=== PATIENT | male | born 1955 | race Caucasian/White ===

== ENCOUNTER → 2016-08-20 | Outpatient (CLI) | payer BC, OTHER | LOC: RAD 15:56 | PROVIDERS: ATTEND Specialist | DX: C90.00 Multiple myeloma not having achieved remission (principal) | CPT/HCPCS: 78816; A9552 ==

== ENCOUNTER 2018-04-27 08:08 | Outpatient (CLI) | payer OTHER ==
[~2018-04-27 08:08] MED LIST: ACETAMINOPHEN 325 MG TABLET PO PRN; DEXAMETHASONE SOD PHOSPHATE 10 MG in NORMAL SALINE 50 ML IV PRN; DEXTROSE 5%-WATER 250 ML IV PRN; DIPHENHYDRAMINE HCL 50 MG in NORMAL SALINE 50 ML IV PRN; GLY IV PRN; IGA OV50 IV PRN; IMMUN GLOB IV PRN; [UNRECOGNIZED DRUG - OTHER] IV PRN
[2018-04-27 08:49] VITALS: BP 123/56
== END 2018-04-27 13:14 | disposition home or self-care (01) ==
LOC: II 08:08 → 5TH 08:11 → II 13:14
PROVIDERS: ATTEND Internal Medicine
PROC: 30243S1 Transfusion of Nonautologous Globulin into Central Vein, Percutaneous Approach (ICD-10-PCS; principal; 2018-04-27)
PROC: 3E0433Z Introduction of Anti-inflammatory into Central Vein, Percutaneous Approach (ICD-10-PCS; 2018-04-27)
PROC: 3E043GC Introduction of Other Therapeutic Substance into Central Vein, Percutaneous Approach (ICD-10-PCS; 2018-04-27)
DX: D80.1 Nonfamilial hypogammaglobulinemia (principal)
CPT/HCPCS: 96365; 96366; 96367; J1200; J3490; J1100; J1569 ×2

== ENCOUNTER 2018-05-25 08:30 | Outpatient (CLI) | payer OTHER ==
[~2018-05-25 08:30] MED LIST changes: +[UNRECOGNIZED DRUG - OTHER] IV PRN; -[UNRECOGNIZED DRUG - OTHER] IV PRN
[2018-05-25 09:26] VITALS: BP 120/76
== END 2018-05-25 13:00 | disposition home or self-care (01) ==
LOC: II 08:30 → 5TH 08:43 → II 13:00
PROVIDERS: ATTEND Internal Medicine
PROC: 30233S1 Transfusion of Nonautologous Globulin into Peripheral Vein, Percutaneous Approach (ICD-10-PCS; principal; 2018-05-25)
PROC: 3E0333Z Introduction of Anti-inflammatory into Peripheral Vein, Percutaneous Approach (ICD-10-PCS; 2018-05-25)
PROC: 3E033GC Introduction of Other Therapeutic Substance into Peripheral Vein, Percutaneous Approach (ICD-10-PCS; 2018-05-25)
DX: D80.1 Nonfamilial hypogammaglobulinemia (principal)
CPT/HCPCS: 96367; J1200; J3490; J1100; J1569 ×2; 96365; 96366

== ENCOUNTER 2018-08-03 09:01 | Outpatient (CLI) | payer OTHER ==
[~2018-08-03 09:01] MED LIST changes: +DEXAMETHASONE 10 MG in NS 50 ML IV PRN; -DEXAMETHASONE SOD PHOSPHATE 10 MG in NORMAL SALINE 50 ML IV PRN; +DIPHENHYDRAMINE 50 MG/ML VIAL IV PRN; -GLY IV PRN; -IGA OV50 IV PRN; -IMMUN GLOB IV PRN; +IMMUNE GLOB GAM CAPRYLATE IV PRN; +[UNRECOGNIZED DRUG - OTHER] IV PRN; -[UNRECOGNIZED DRUG - OTHER] IV PRN
[2018-08-03 09:38] VITALS: BP 125/77
== END 2018-08-03 13:35 | disposition home or self-care (01) ==
LOC: II 09:01 → 5TH 09:02 → II 13:35
PROVIDERS: ATTEND Internal Medicine Hematology & Oncology
PROC: 30233S1 Transfusion of Nonautologous Globulin into Peripheral Vein, Percutaneous Approach (ICD-10-PCS; principal; 2018-08-03)
PROC: 3E0333Z Introduction of Anti-inflammatory into Peripheral Vein, Percutaneous Approach (ICD-10-PCS; 2018-08-03)
PROC: 3E033GC Introduction of Other Therapeutic Substance into Peripheral Vein, Percutaneous Approach (ICD-10-PCS; 2018-08-03)
DX: D80.1 Nonfamilial hypogammaglobulinemia (principal)
CPT/HCPCS: 96367; J1561 ×3; J1200; J3490; J1100; 96365; 96366

== ENCOUNTER → 2018-12-19 | Outpatient (CLI) | payer OTHER ==
--- NOTE | 2018-12-19 09:34 | RADIOLOGY REPORT (SQ) ---
EXAM DESCRIPTION: MRI HEAD COMBO COMPLETED DATE/TIME: 12/19/2018 9:20 am REASON FOR STUDY: HEADACHE R51 HEADACHE COMPARISON: None. TECHNIQUE: Multiplanar imaging includes noncontrasted T1, T2, FLAIR, diffusion with ADC map and post gadolinium contrast T1 sequences. Images stored on PACS. CONTRAST TYPE AND DOSE: 20 mL Dotarem. RENAL FUNCTION: Not indicated. ACR Type II contrast agent associated with few, if any, unconfounded cases of NSF LIMITATIONS: None. FINDINGS: ANATOMY: No anomalies. Normal vascular flow voids. Pituitary fossa normal. CSF SPACES: Normal in size and contour. No hemorrhage. CEREBRUM: Sulci and gyri normal in size and contour. Normal white matter signal on FLAIR imaging. No evidence of hemorrhage, mass, or extraaxial fluid collection. No abnormal enhancement post contrast. POSTERIOR FOSSA: No signal alteration. No hemorrhage. No edema, masses, or mass effect. Internal lyric tory canals, cerebellopontine angles, mastoids normal. No enhancing lesions. No abnormal enhancement post contrast. DIFFUSION IMAGING: Negative for acute or subacute infarction. ORBITS: No masses. Globes normal. PARANASAL SINUSES: No fluid levels. Mucosa normal. OTHER: No other significant finding. IMPRESSION: NORMAL MRI OF THE BRAIN WITHOUT AND WITH INTRAVENOUS GADOLINIUM CONTRAST. EVIDENCE OF ACUTE STROKE: NO. TECHNICAL DOCUMENTATION: JOB ID: [id number] [employer]- All Rights Reserved Reading location - IP/workstation name: [email or web address]
== END ==
LOC: RAD 08:29
PROVIDERS: ATTEND Physician Assistant Medical
DX: R51 Headache (principal)
CPT/HCPCS: 82565; 70553; A9576